=== PATIENT | female | born 1955 | race Caucasian/White ===

== ENCOUNTER → 2020-08-14 10:28 | Outpatient (CLI) | payer MEDICARE, OTHER, SELFPAY ==
--- NOTE | ~2020-08-14 | MM_ITS ---
EXAMINATION: MM screening rafal BI w allen HISTORY: Screening TECHNIQUE: Craniocaudal and mediolateral oblique 3-D tomosynthesis images were obtained and synthetic 2-D images were generated. CAD analysis was submitted and interpreted. COMPARISON: Comparison to multiple prior studies sequentially, with oldest reviewed study dated 11/2014. BREAST PARENCHYMAL COMPOSITION: There are scattered areas of fibroglandular density. FINDINGS: There is no evidence of suspicious mass, calcification, or architectural distortion to sugg est malignancy in either breast. There has been no suspicious interval change. IMPRESSION: 1. No mammographic evidence of malignancy. 2. Recommend routine screening mammography in one year. BI-RADS Category 1: Negative Reviewed, dictated and finalized at location A. MAKER
== END ==
PROVIDERS: Visit Provider Obstetrics & Gynecology
DX: Z12.31 Encounter for screening mammogram for malignant neoplasm of breast (principal)
CPT/HCPCS: 77063; 77067

== ENCOUNTER → 2021-09-22 09:20 | Outpatient (CLI) | payer MEDICARE, OTHER, SELFPAY ==
--- NOTE | ~2021-09-22 | MMUS_ITS ---
EXAMINATION: MM diagnostic rafal BI w allen, US breast LT complete HISTORY: Bilateral breast pain TECHNIQUE: ML, MLO and craniocaudal 3-D tomosynthesis images of both breasts were performed and [facility] were [facility]. CAD analysis was submitted and interpreted. High resolution complete bilateral breast ultrasound including all 4 quadrants and subareolar areas was performed. COMPARISON: 08/14/2020, 04/23/2019, 02/13/2018, 12/30/2016 bilateral screening mammogram examinations BREAST PARENCHYMAL COMPOSITION: There are scattered areas of fibroglandular density. FINDINGS: MAMMOGRAPHIC FINDINGS: Right breast: No suspicious mass, architectural distortion, malignant calcification, skin thickening or retraction is evident on the right. Minimal benign calcification. Left breast: Low-density approximately 1.3 cm opacity is noted in the inner mid breast at mid depth. An approximately 7 mm opacity is noted superomedial to this 1.3 cm opacity, near the central aspect o f the left breast. These are present on prior mammograms dating back to 12/30/2016 There is minimal benign calcification. ULTRASOUND: 8:00 5 cm from nipple: 0.6 x 1.3 centimeter septated cyst, with through transmission, corresponding t o the 1.3 cm mammographic opacity, benign in appearance 8:00 4 cm from nipple: 4.5 x 7.2 x 7.8 mm cyst with through transmission posterior enhancement, corre sponding to the smaller mammographic opacity. IMPRESSION: 1. Benign findings 2. Routine mammographic screening is recommended. BI-RADS Category 2: Benign finding(s). Reviewed, dictated and finalized at location A. CTIONS RECOVERY SPECIALIST IMPRESSION: 1. Benign findings 2. Routine mammographic screening is recommended. BI-RADS Category 2: Benign finding(s).
== END ==
PROVIDERS: PCP Internal Medicine; Visit Provider Advanced Practice Midwife
DX: N64.4 Mastodynia (principal); N60.02 Solitary cyst of left breast
CPT/HCPCS: 76641; 77062; 77066; G0279

== ENCOUNTER → 2022-06-04 13:17 | Outpatient (CLI) | payer MEDICARE, OTHER, SELFPAY ==
--- NOTE | ~2022-06-04 | DEXA_ITS ---
Bone Density Report Name: KELLIE BERGER Age: 66 Sex: Female Ethnicity: White Date of : 1955 Indication: osteopenia; height loss; asthma or emphysema; hysterectomy; postmenopausal Referring Provider: YANETH, JOSE Olmedo Study: Bone densitometry was performed. Exam Date: June 04, 2022 Accession number: [id number] Bone Density: Region BMD T-score Z-score Classification AP Spine (L1-L4) 0.859 -1.7 0.3 Osteopenia Femoral Neck (Left) 0.582 -2.4 -0.7 Osteopenia Total Hip (Left) 0.757 -1.5 -0.1 Osteopenia Femoral Neck (Right) 0.692 -1.4 0.3 Osteopenia Total Hip (Right) 0.778 -1.3 0.0 Osteopenia Total Hip Mean 0.768 -1.4 -0.1 Osteopenia World Health Organization criteria for BMD impression classify patients as: Normal (T-score at or above -1.0), Osteopenia (T-score between -1.0 and -2.5), or Osteoporosis (T-score at or below -2.5). 10-year Fracture Risk(1): Major Osteoporotic Fracture 12% Hip Fracture 2.3% Reported Risk Factors: [place] (), Neck BMD=0.582, BMI=38.0 (1) FRAX(R) Version 3.08. Fracture probability calculated for an untreated patient. Fracture probability may be lower if the patient has received treatment. Previous Exams: Region Exam Age BMD T-score BMD Change BMD Change Date g/cm2 vs Baseline vs Previous AP Spine(L1-L4) 06/04/2022 66 0.859 -1.7 -0.172 -0.003 10/30/2015 60 0.861 -1.7 -0.170 -0.044* 05/18/2010 54 0.905 -1.3 -0.126 -0.044* 10/10/2006 51 0.949 -0.9 -0.082 -0.082 12/20/2003 48 1.031 -0.1 Total Hip(Left) 06/04/2022 66 0.757 -1.5 -0.015 0.050 10/30/2015 60 0.707 -1.9 -0.065 -0.056* 05/18/2010 54 0.763 -1.5 -0.009 -0.099* 10/10/2006 51 0.862 -0.7 0.090 0.090 12/20/2003 48 0.772 -1.4 Total Hip(Right) 06/04/2022 66 0.778 -1.3 -0.022 -0.007 10/30/2015 60 0.785 -1.3 -0.015 -0.035* 05/18/2010 54 0.821 -1.0 0.021 -0.065* 10/10/2006 51 0.886 -0.5 0.085 0.085 12/20/2003 48 0.800 -1.2 *Denotes significance at 95% confidence level, LSC for AP Spine = 0.022 g/cm2, LSC for Total Hip = 0.027 g/cm2 Clinical Information Provided by Patient: Has used the following medications: Vitamin D Has the following medical conditions: Asthma or Emphysema, Hysterectomy Patient maximum height was 66
== END ==
PROVIDERS: PCP Internal Medicine; Visit Provider Internal Medicine
DX: Z78.0 Asymptomatic menopausal state (principal); M85.88 Other specified disorders of bone density and structure, other site; M85.852 Other specified disorders of bone density and structure, left thigh; M85.851 Other specified disorders of bone density and structure, right thigh
CPT/HCPCS: 77080

== ENCOUNTER → 2023-06-13 12:33 | Outpatient (CLI) | payer MEDICARE, OTHER, SELFPAY ==
--- NOTE | ~2023-06-13 | MM_ITS ---
EXAMINATION: MM screening rafal BI w allen HISTORY: Screening mammogram, family history of breast cancer in her sister. TECHNIQUE: Craniocaudal and mediolateral oblique 3-D tomosynthesis images were obtained and synthetic 2-D images were generated. CAD analysis was submitted and interpreted. COMPARISON: 09/22/2021, 08/14/2020, 04/23/2019 BREAST PARENCHYMAL COMPOSITION: There are scattered areas of fibroglandular density. FINDINGS: Stable left breast masses are consistent with benign findings. No suspicious mass, calcific ation, or architectural distortion are identified in either breast to suggest malignancy. There has b een no suspicious interval change. IMPRESSION: 1. No mammographic evidence of malignancy. 2. Recommend routine screening mammography in one year. BI-RADS Category 2: Benign finding(s). Reviewed, dictated and finalized at location A. P POLISHER
== END ==
PROVIDERS: PCP Obstetrics & Gynecology; Visit Provider Obstetrics & Gynecology
DX: Z12.31 Encounter for screening mammogram for malignant neoplasm of breast (principal)
CPT/HCPCS: 77063; 77067

== ENCOUNTER 2023-12-28 16:00 | Outpatient (CLI) | payer MEDICARE, OTHER, SELFPAY ==
[2023-12-28 17:31] LABS: Hematocrit 41.4 % (37.0-47.0); Hemoglobin 13.2 g/dL (12.0-15.0); Mean Corpuscular HGB Conc 31.9 g/dl (32-36); Mean Corpuscular Hemoglobin 30.3 pg (26-34); Mean Platelet Volume 11.2 fl (7.4-10.4); Platelet Count Result 196 k/mm3 (150-375); Red Blood Count 4.36 M/mm3 (4.2-5.4); Red Cell Distribution Width 12.4 % (11.5-14.5); White Blood Count 4.6 K/mm3 (4.5-10.0)
[2023-12-28 18:32] LABS: Erythrocyte Sedimentation Rate 32 mm/hr (0-20)
[2023-12-28 18:57] LABS: Alanine Aminotransferase 26 U/L (6-35); Albumin Level 4.4 g/dL (3.5-5.1); Alkaline Phosphatase 83 U/L (38-126); Anion Gap 10 mmol/L (4-12); Aspartate Amino Transferase 34 U/L (14-36); Bilirubin,Total 0.4 mg/dL (0.2-1.3); Blood Urea Nitrogen 22 mg/dL (7-17); CRP < 0.5 mg/dL (<1.0); Calcium 9.5 mg/dL (8.4-10.2); Carbon Dioxide 24 mmol/L (22-30); Chloride 109 mmol/L (98-107); Estimated Glomerular Filt Rate 49; Glucose 95 mg/dL (65-110); Potassium 4.1 mmol/L (3.4-5.0); Sodium 143 mmol/L (137-145)
[2023-12-28 20:11] LABS: Free T4 Free Thyroxine Reflex 0.95 ng/dL (0.78-2.19)
[2023-12-28 21:44] LABS: Total Triiodothyronine (T3) 1.42 NG/ML (0.97-1.69)
[2024-01-02 18:08] LABS: Immunoglobulin A 305 mg/dL (70-320); TTG IGA AB <1.0 U/mL
== END 2023-12-28 16:01 | disposition home or self-care (01) ==
LOC: ANHLAB 16:07
PROVIDERS: PCP Internal Medicine; Visit Provider Nurse Practitioner
DX: K58.0 Irritable bowel syndrome with diarrhea (principal)
CPT/HCPCS: 36415; 80053; 82784; 84439; 84443; 84480; 85027; 85652; 86140; 86364

== ENCOUNTER 2024-01-05 15:07 | Outpatient (CLI) | payer MEDICARE, OTHER, SELFPAY ==
[2024-01-05 17:07] LABS: Toxigenic C. Diff NEGATIVE (NEGATIVE)
[2024-01-09 15:44] LABS: Calprotectin, Stool 67 mcg/g
[2024-01-11 22:03] LABS: Pancreatic Elastase, Stool >500 mcg/g
== END 2024-01-05 15:08 | disposition home or self-care (01) ==
LOC: ANHLAB 15:09
PROVIDERS: PCP Internal Medicine; Visit Provider Nurse Practitioner
DX: K58.0 Irritable bowel syndrome with diarrhea (principal)
CPT/HCPCS: 82653; 83993; 87045; 87427; 87449; 87493

== ENCOUNTER 2024-11-26 08:58 | Outpatient (CLI) | payer MEDICARE, OTHER, SELFPAY ==
--- NOTE | ~2024-11-26 | MMUS_ITS ---
EXAMINATION: MM diagnostic rafal BI w allen, US breast LT limited HISTORY: 69-year-old woman with a significant family history of breast cancer and multiple prior bila teral breast biopsies (excisional and percutaneous) presents with a palpable left-sided abnormality o f unknown duration TECHNIQUE: Additional 3-D tomosynthesis images of the bilateral breasts were performed and synthetic 2-D images were generated. CAD analysis was submitted and interpreted. High resolution limited left breast ultrasound was performed. COMPARISON: 06/13/2023 and dating back to 04/23/2019 BREAST PARENCHYMAL COMPOSITION: Not Dense. There are scattered areas of fibroglandular density. FINDINGS: MAMMOGRAPHIC FINDINGS: Punctate calcifications are detected bilaterally, stable and benign in appearance. No architectural distortion or suspicious microcalcifications are present. The area of palpable concern is located within the slightly upper inner left breast between 2 and 5 c m from the nipple. An additional asymmetry within the slightly upper inner left breast is also noted (not corresponding to the area of palpable concern), for which focused ultrasound will be performed This area is stable mammographically dating back to 2018. ULTRASOUND: At the 9:00 position of the left breast approximately 7 cm from the nipple is a 14 x 6 x 18 mm well-c ircumscribed avascular anechoic focus with increased through transmission, consistent with a simple c yst for which no further follow-up is needed. At the 7:00 position of the left breast approximately 8 cm from the nipple is a 10.5 x 10.4 x 12 mm w ell-circumscribed, avascular, anechoic focus with increased through transmission, consistent with a s imple cyst for which no further follow-up is needed. At the 6:00 position of the left breast approximately 10 cm from the nipple is a well-circumscribed, anechoic, avascular focus measuring 12 x 6 x 12 mm, with increased through transmission, consistent w ith a simple cyst for which no further follow-up is needed. Sonographic evaluation of the remainder of the left breast demonstrates benign fibroglandular element s without a cystic or solid lesion of concern. IMPRESSION: No mammographic/tomographic or sonographic evidence to suggest the presence of malignancy Simple cysts, corresponding to the area of palpable concern, as detailed above. Resumption of yearly mammography is recommended. BI-RADS Category 2: Benign finding(s). Reviewed, dictated and finalized at location A. IMPRESSION: No mammographic/tomographic or sonographic evidence to suggest the presence of malignancy Simple cysts, corresponding to the area of palpable concern, as detailed above. Resumption of yearly mammography is recommended. BI-RADS Category 2: Benign finding(s).
== END 2024-11-26 08:59 | disposition home or self-care (01) ==
LOC: MICIMG 09:00
PROVIDERS: PCP Internal Medicine; Visit Provider Obstetrics & Gynecology
DX: N63.0 Unspecified lump in unspecified breast (principal); Z80.3 Family history of malignant neoplasm of breast; R92.8 Other abnormal and inconclusive findings on diagnostic imaging of breast
CPT/HCPCS: 76642; 77062; 77066; G0279

== ENCOUNTER 2024-12-06 14:50 | Outpatient (CLI) | payer MEDICARE, OTHER, SELFPAY ==
--- OUTSIDE RECORDS SUMMARY | 2024-12-06 14:55 | XMS_ITS | Encounter Summary ---
Author Organization [facility] Healthcare Address [address] [place] [address] Care Team Providers Care Picture Framer Name Role Phone Unavailable Primary Care Provider Unavailabl e Reason for Visit * Diagnostic Imaging (Routine) - Closed Specialty Diagnoses / Procedures Referred By Contbear t Referred To Contact Procedures Breast Imaging Screening Outside Reference Nila Haddad MD PhD [address] [facility] [id number] [place] [address] Phone: tel: fax: Referral ID Status Reason Start Date Expiration Date Visits Re quested Visits Authorized [id number] Closed 11/30/2021 12/30/2022 1 1 Encounter Details Date Type Department Care Team (Late st Contact Info) Description 02/13/2018 Hospital Encounter [facility] [address] [place] [phone] Social History Tobacco Use Types Packs/Day Years Used Date Smoking Tobacco: Former Cigarettes Q uit: 1979 Smokeless Tobacco: Never AUDIT-C Answer Date Recorded Q1: How often do you have a drink containing alc ohol? Never 03/30/2024 Average Number of Drinks Not on file 024 Frequency of Binge Drinking Not on file 03/03 Personal Safety Answer Date Recorded Have you ever been in or are you currently in a harmful physical or emotional relationship or is someone making you feel afraid or unsafe? Denies 03/30/2024 Comments Unknown Sex and Gender Information Value Date Recorded Sex Assigned at Not on file Legal Sex Female 2:16 AM [employer] Gender Identity Not on file Sexual Orientation Not on file documented as of this encounter Functional Status documented as of this encounter Plan of Treatment Not on file documented as of this encounter Procedures Procedure Name Priority Date/Time Associated Diagnosis Comments BREAST IMAGING MG SCREENING OUTSIDE REFERENCE Routine 02/13/2018 12:00 AM CDT documented in this encounter Results * Breast Imaging Screening Outside Reference (02/13/2018 12:00 AM CDT) Impressions [facility] - 11/30/2021 2:53 PM CDT These images are for Reference purposes only and have not been reviewed by [facility]iology. There will be no report generated by a [facility] Radiologist. Narrative [facility] - 11/30/2021 2:53 PM CDT EXAMINATION: Images For Reference Purposes Only us Nila Haddad MD PhD IMG MAMMO PROCEDURES Final Result [facility] documented in this encounter Visit Diagnoses Not on filedocumented in this encounter
--- OUTSIDE RECORDS SUMMARY | 2024-12-06 14:55 | XMS_ITS | Encounter Summary ---
Author Organization [facility] Healthcare Address [address] [place] [address] Care Team Providers Care English Adjunct Faculty Name Role Phone Unavailable Primary Care Provider Unavailabl e Reason for Visit * Diagnostic Imaging (Routine) - Closed Specialty Diagnoses / Procedures Referred By Contbear t Referred To Contact Procedures Breast Imaging Screening Outside Reference Nila Haddad MD PhD [address] [facility] [id number] [place] [address] Phone: tel: fax: Referral ID Status Reason Start Date Expiration Date Visits Re quested Visits Authorized [id number] Closed 11/30/2021 12/30/2022 1 1 Encounter Details Date Type Department Care Team (Late st Contact Info) Description 08/14/2020 Hospital Encounter [facility]iology [facility] [address] [place] [phone] Social History Tobacco Use Types Packs/Day [...] on file 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 Gender Identity Not on file Sexual Orientation Not on file documented as of this encounter Functional Status documented as of this encounter Plan of Treatment Not on file documented as of this encounter Procedures Procedure Name Priority Date/Time Associated Diagnosis Comments BREAST IMAGING MG SCREENING OUTSIDE REFERENCE Routine 08/14/2020 12:00 AM LOCK AND DAM REPAIRER documented in this encounter Results * Breast Imaging Screening Outside Reference (08/14/2020 12:00 AM LOCK AND DAM REPAIRER) Impressions [facility] - 11/30/2021 2:54 PM CDT These images are for Reference purposes only and have not been reviewed by [facility] Radiology. There will be no report generated by a [facility] Radiologist. Narrative [facility] - 11/30/2021 2:54 PM CDT EXAMINATION: Images For Reference Purposes Only us Nila Haddad MD PhD IMG MAMMO PROCEDURES Final Result [facility] documented in this encounter Visit Diagnoses Not on filedocumented in this encounter
--- OUTSIDE RECORDS SUMMARY | 2024-12-06 14:55 | XMS_ITS | Encounter Summary ---
Author Organization [facility] Healthcare Address [address] [place] [address] Care Team Providers Care Crisis Intervention Specialist Name Role Phone Unavailable Primary Care Provider Unavailabl e Reason for Visit * Diagnostic Imaging (Routine) - Closed Specialty Diagnoses / Procedures Referred By Warren t Referred To Contact Procedures Breast Imaging Screening Outside Reference Nila Haddad MD PhD [address] 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 Gender Identity Not on file Sexual Orientation Not on file documented as of this encounter Functional Status documented as of this encounter Plan of Treatment Not on file documented as of this encounter Procedures Procedure Name Priority Date/Time Associated Diagnosis Comments BREAST IMAGING MG SCREENING OUTSIDE REFERENCE Routine 12/30/2016 12:00 AM CDT documented in this encounter Results * Breast Imaging Screening Outside Reference (12/30/2016 12:00 AM CDT) Impressions [facility] - 11/30/2021 2:53 PM CDT These images are for Reference purposes only and have not been reviewed by [facility] Radiology. There will be no report generated by a [facility] Radiologist. Narrative [facility] - 11/30/2021 2:53 PM CDT EXAMINATION: Images For Reference Purposes Only us Nila Haddad MD PhD IMG MAMMO PROCEDURES Final Result [facility] documented in this encounter Visit Diagnoses Not on filedocumented in this encounter
--- OUTSIDE RECORDS SUMMARY | 2024-12-06 14:55 | XMS_ITS | Encounter Summary ---
Author Organization [facility] Healthcare Address [address] [place] [address] Care Team Providers Care Card Runner Name Role Phone Unavailable Primary Care Provider Unavailabl e Reason for Visit * Diagnostic Imaging (Routine) - Closed Specialty Diagnoses / Procedures Referred By Contbear t Referred To Contact Procedures Breast Imaging Screening Outside Reference Nila Haddad MD PhD [address] [facility] [phone] [place] [address] Phone: tel: fax: Referral ID Status Reason Start Date Expiration Date Visits Re quested Visits Authorized [id number] Closed 11/30/2021 12/30/2022 1 1 Encounter Details Date Type Department Care Team (Late st Contact Info) Description 04/23/2019 Hospital Encounter [facility] [address] [place] [phone] Social History Tobacco Use Types Packs/Day Years [...] on file 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 Gender Identity Not on file Sexual Orientation Not on file documented as of this encounter Functional Status documented as of this encounter Plan of Treatment Not on file documented as of this encounter Procedures Procedure Name Priority Date/Time Associated Diagnosis Comments BREAST IMAGING MG SCREENING OUTSIDE REFERENCE Routine 04/23/2019 12:00 AM CDT documented in this encounter Results * Breast Imaging Screening Outside Reference (04/23/2019 12:00 AM CDT) Impressions [facility] - 11/30/2021 2:54 PM CDT These images are for Reference purposes only and have not been reviewed by [facility] Radiology. There will be no report generated by a [facility] Radiologist. Narrative [facility] - 11/30/2021 2:54 PM CDT EXAMINATION: Images For Reference Purposes Only us Nila Haddad MD PhD IMG MAMMO PROCEDURES Final Result [facility] documented in this encounter Visit Diagnoses Not on filedocumented in this encounter
--- OUTSIDE RECORDS SUMMARY | 2024-12-06 14:55 | XMS_ITS | Clinical Summary ---
Author Organization [facility] Address [address] [place] [address] Care Team Providers Care Sulky Driver Name Role Phone Joseph Kruger MD Primary Care Provider Jones Dalton MD Unavailable [phone] Allergies Active Allergy Reactions Criticality Noted Date Comments Codeine Nausea & Vomiting Low 03/30/2024 Iodine Hives,Dizziness,Nausea only,Sweating Medium 12/03/2021 Medications montelukast (SINGULAIR) 10 mg tablet Take 1 tablet (10 mg total) by mouth nightly 10/14/2021 Active propranolol LA (INDERAL LA) 60 mg 24 hr capsule Take by mouth daily 10/21/2021 Active topiramate (TOPAMAX) 50 mg tablet Take 1 tablet (50 mg total) by mouth 2 (two) times a day 11/30/2021 Active traZODone (DESYREL) 100 mg tablet Take 1 tablet (100 mg total) by mouth nightly at bedtime 11/26/2021 Active predniSONE (DELTASONE) 10 mg tabletIndicatio ns:hypersensiti vity drug reaction Take 40 mg (2-20 mg tables) TID on 03/29/24. Take 40 mg (2-20 mg tablets) on 03/30/24 8 tablet 02/22/2024 Active cholecalciferol (Vitamin D3) 1,000 unit capsule Take 1 capsule (1,000 Units total) by mouth daily 1000units=25 mcg Active Eliquis 5 mg tablet Take 1 tablet (5 mg total) by mouth 2 (two) times a day Active escitalopram (LEXAPRO) 20 mg tablet Take 1 tablet (20 mg total) by mouth daily Active amitriptyline (ELAVIL) 25 mg tablet Take 1 tablet (25 mg total) by mouth nightly 12/27/2023 Active amLODIPine (NORVASC) 5 mg tablet Take 1 tablet (5 mg total) by mouth daily 12/27/2023 Active Bacillus coagulans (PROBIOTIC, B. 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 Dalton -Remains compliant on apixaban -No medication changes were made today -EKG today demonstrates sinus rhythm -Denies any reoccurrence of her atrial arrhythmia -Follow up in 3 months for 12 lead EKG and clinic visit Assessment & Plan (02/10/2024 1:13 PM CDT): The patient has symptomatic paroxysmal atrial fibrillation, of overall high burden (estimated at 75%, by previous event recorder). After considering possible options for manage, the patient is not in favor of antiarrhythmic pharmacologic therapy. As an alternative, we discussed catheter ablation. We discussed the rationale for atrial fibrillation ablation, including the steps involved in ablation. I detailed the risks of the procedure, including vascular injury/hematoma, myocardial injury/perforation, stroke, myocardial infarction, pulmonary vein stenosis, thermal esophageal injury, phrenic nerve injury and . I estimated a 70-80% chance of freedom from long-term atrial arrhythmia, and the patient understands that occasionally a second procedure is necessary. The patient has a [id number] score of 2. I have therefore recommended continued anticoagulation thromboprophylaxis. My office will make the appropriate arrangements. From: August, Marty WHITLEY, Alanna JS, Luis H, Rakan MORENA, Jeny JE, Graciela RUBÉN, Jaquelin PT, Mamadou DURON, ME, Wong KT, Riya RL, Sid WG, Nya PJ, Tiffany CM, Jenn CW. 2014 AHA/ACC/HRS guideline for the management of patients with atrial fibrillation: a report of the [place] [employer]/[place] [employer] Association Task Force on Practice Guidelines and the Heart Rhythm Society. J Am Stephanie Cardiol 2014. 6.3. AF Catheter Ablation to Maintain Sinus Rhythm: Recommendations Class IIA. In patients with recurrent symptomatic paroxysmal AF, catheter ablation is a reasonable initial rhythm control strategy prior to therapeutic trials of antiarrhythmic drug therapy, after weighing risks and outcomes of drug and ablation therapy ([phone]). (Level of Evidence: B) Encounters Date Type Department Care Team Description 11/20/2024 Orders Only [facility] [address] [place] [phone] Tim Pollock DO 11/12/2024 1:30 PM CDT Office Visit [facility] [address] [place] [phone] Judy Mukherjee, AMELIA Cardiac arrhythmia, unspecified cardiac arrhythmia type (Primary Dx) 11/01/2024 Orders Only [facility] [address] [place] [address] [address] [facility] [place] [phone] Mike Mclaughlin MD from Last 3 Months Surgical History Surgery Date Site/Laterality Comments BREAST BIOPSY Left Left x2, right x1 MANDIBLE SURGERY ARM SURGERY Left REPLACEMENT TOTAL KNEE Bilateral Medical History Medical History Date Comments HTN (hypertension) Generalized headaches Depression Overweight Arthritis Breathing difficulty Arrhythmia Family History Medical History Relation Name Comments Breast cancer Father's Sister Colon cancer Mother's Brother 1 Colon cancer Mother's Brother 2 Colon cancer Mother's Sister Breast cancer Paternal Grandmother Breast cancer Sister 1 Leukemia Sister 1 Breast cancer Sister 2 Colon cancer Sister 2 Relation Name Status Comments Father's Sister Mother's Brother 1 Mother's Brother 2 Mother's Sister Paternal Grandmother Sister 1 Sister 2 Social History Tobacco Use Types Packs/Day Years [...] on file Legal 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 Gender Identity Not on file Sexual Orientation Not on file Obstetrics History Last Filed Vital Signs Vital Sign Reading Time Taken Comments Blood Pressure 152/84 11/12/2024 1:25 PM CDT Pulse 69 11/12/2024 1:25 PM CDT Temperature 36.6 C (97.8 F) 03/30/2024 9:33 AM CDT Respiratory Rate 18 03/30/2024 2:00 PM CDT Oxygen Saturation 96% 03/30/2024 2:00 PM CDT Inhaled Oxygen Concentration - - Weight 102.1 kg (225 lb) 11/12/2024 1:25 PM CDT Height 165.1 cm (5' 5 ) 11/12/2024 1:25 PM CDT Body Mass Index 37.44 11/12/2024 1:25 PM CDT Plan of Treatment Health Maintenance Due Date Last Done Comments Breast Cancer Screening-Mammogram 1954 Colon Cancer Screening-Colonoscopy 1955 Depression Screening 1955 Hepatitis C Screening 1955 Osteoporosis Screening-Bone Density Scan 1954 Hepatitis B Screening 1972 Zoster Vaccine (1 of 2) 2004 05/14/2020 Well Visit 65+ 2019 Covid-19 Vaccine (3 - 2023-2 5 season) 2024 11/25/2020, 10/28/2020 DTaP/Tdap/Td Vaccine (2 - Td or Tdap) 05/03/2024 05/03/2014 Fall Risk Assessment 03/30/2025 03/30/2024 Influenza Vaccine (Season Ended) 2025 09/14/2023, 05/20/2020, 06/27/2019, Additional history exists Pneumococcal vaccine 65+ Completed 021, 06/27/2019, 07/05/2012, Additional history exists Medical Devices Implanted Type Area Pencils Washer Device Identifier Shelf Expiration Date Model / Serial / Lot [employer] Device Vascular Closure Femoral Artery Bioabsorbable Dual Method Vascade 6-7fr Collagen [id number] - [id number] - [id number] Implanted:Qty: 1 on 03/30/2024 by Jones Dalton MD at [facility] Collagen [employer] 11/08/2025 [id number] 5U / [id number] / [id number] [employer] Vascade Mvp 6-12fr Venous Closure [id number] - [id number] - [id number] Implanted:Qty: 1 on 03/30/2024 by Jones Dalton MD at [facility] Collagen [employer] 11/23/2025 [id number] [id number] / [id number] / [id number] [employer] Vascade Mvp 6-12fr Venous Closure [id number] - [id number] - [id number] Implanted:Qty: 1 on 03/30/2024 by Jones Dalton MD at [facility] Collagen [employer] 11/23/2025 800-612C-1 [id number] / [id number] / [id number] [employer] Vascade Mvp 6-12fr Venous Closure [id number] - [id number] - [id number] Implanted:Qty: 1 on 03/30/2024 by Jones Dalton MD at [facility] Collagen [employer] 11/23/2025 800-612C-1 [id number] / [id number] / [id number] Procedures Procedure Name Priority Date/Time Associated Diagnosis Comments CARDIOLOGY DOCUMENT SCAN Routine 11/20/2024 9:26 AM CDT CARDIOLOGY DOCUMENT SCAN Routine 11/20/2024 9:19 AM CDT ECG 12-LEAD Routine 11/12/2024 1:26 PM CDT Cardiac arrhythmia, unspecified cardiac arrhythmia type CARDIOLOGY DOCUMENT SCAN 11/01/2024 3:18 PM CDT CARDIOLOGY DOCUMENT SCAN 11/01/2024 12:48 PM CDT from Last 3 Months Results * Cardiology Document Scan (11/20/2024 9:26 AM CDT) Anatomical Region Laterality Modality Other us Tim Pollock DO [facility] PRO CEDURES Final Result * Cardiology Document Scan (11/20/2024 9:19 AM CDT) Anatomical Region Laterality Modality Other us Tim Pollock DO [facility] PRO CEDURES Final Result * ECG 12 lead (11/12/2024 1:26 PM CDT) Judy Mukherjee NP ECG ORDERABLES Final Resu lt * Cardiology Document Scan (11/01/2024 3:18 PM CDT) Anatomical Region Laterality Modality Other Mike Mclaughlin MD [facility] PROCEDURE S Final Result * Cardiology Document Scan (11/01/2024 12:48 PM CDT) Anatomical Region Laterality Modality Other Mike Mclaughlin MD [facility] PROCEDURE S Final Result from Last 3 Months Insurance MEDICARE [employer] MEDICARE [employer] Care Teams Sulky Driver Relationship Specialty Start Date End Date Joseph Kruger MD PCP - General Internal Medicine 10/16/21 Jones Dalton MD [id number] [address] Consulting Physician Electrophysiology 06/26/24
--- OUTSIDE RECORDS SUMMARY | 2024-12-06 14:55 | XMS_ITS | Encounter Summary ---
Author Organization [facility] Address [address] [place] [address] Care Team Providers Care Shake Maker Name Role Phone Unavailable Primary Care Provider Unavailabl e Reason for Visit * Diagnostic Imaging (Routine) - Closed Specialty Diagnoses / Procedures Referred By Contbear t Referred To Contact Procedures Breast Imaging Screening Outside Reference Nila Haddad MD PhD [address] [facility] [id number] [place] [address] Phone: tel: fax: Referral ID Status Reason Start Date Expiration Date Visits Re quested Visits Authorized [id number] Closed 11/30/2021 12/30/2022 1 1 Encounter Details Date Type Department Care Team (Late st Contact Info) Description 10/03/2014 Hospital Encounter [facility] [address] [place] [address] [phone] Social History Tobacco Use Types Packs/Day Years [...] on file 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 Gender Identity Not on file Sexual Orientation Not on file documented as of this encounter Functional Status documented as of this encounter Plan of Treatment Not on file documented as of this encounter Procedures Procedure Name Priority Date/Time Associated Diagnosis Comments BREAST IMAGING MG SCREENING OUTSIDE REFERENCE Routine 10/03/2014 12:00 AM SCHOOL CROSSING GUARD SUPERVISOR documented in this encounter Results * Breast Imaging Screening Outside Reference (10/03/2014 12:00 AM SCHOOL CROSSING GUARD SUPERVISOR) Impressions [facility] - 11/30/2021 2:53 PM CDT These images are for Reference purposes only and have not been reviewed by [facility]. There will be no report generated by a [facility] Radiologist. Narrative [facility] - 11/30/2021 2:53 PM CDT EXAMINATION: Images For Reference Purposes Only us Nila Haddad MD PhD IMG MAMMO PROCEDURES Final Result [facility] documented in this encounter Visit Diagnoses Not on filedocumented in this encounter
--- OUTSIDE RECORDS SUMMARY | 2024-12-06 14:55 | XMS_ITS | CONTINUITY OF CARE DOCUMENT ---
Author Name iker dungkajal Address Unknown Organization [facility] Address [address] [address] [place] [address] Phone [phone] Care Team Providers Care Honeycomb Decapper Name Role Phone Tim Pollock DO Unavailable Joseph Kruger MD Unavailable [phone] Joseph Kruger MD Unavailable PROBLEMS Condition Status Date Provider Notes CHEST PAIN-05/12 NUC EF 62 completed - P radpawel Pollcok DO SHORTNESS OF BREATH-05/12 ECHO EF 60 completed - Tim lechuga DO DEPRESSION completed - Tim Pollock DO ASTHMA completed - Tim Pollock DO MIGRAINE completed - Tim Pollock DO GASTRIC ULCER completed - Tim Pollock DO Cardiology examination completed 7 - Tim Pollock DO HTN essential active Tim Pollock DO Atrial fib ? persistent active Stephanie Pollock DO Sleep apnea has sx will r/o completed 2023 - Tim Pollock DO Dyspnea on exertion active Tim Pollock DO CHF - diastolic completed - Tim Harry Phill PELAEZ Chest pain-type to be determined active Tim lechuga DO Leg pain, left active Tim Harry Phill DO ENCOUNTERS Date Type Provider Location Encounter Diag nosis - In-person encounter Office Visit Tim Harry Phill PELAEZ [facility] Cardiology examinationCHF - diastolicChest pain-type to be determinedLeg pain, left - In-person encounter Office Visit Tim Harrycrissy Pollock DO [facility] - In-person encounter Office Visit Tim Pollock DO [facility] Sleep apnea has sx will r/o - In-person encounter Office Visit Tim Pollock DO [facility] CHEST PAIN-05/12 NUC EF 62SHORTNESS OF BREATH-05/12 ECHO EF 60DEPRESSIONASTHMAMIGRAI NEGASTRIC ULCERHTN essentialAtrial fib ? persistentDyspnea on exertion - In-person encounter Office Visit Renny Hernández MD [place] [facility] VITAL SIGNS Date Observation Value Provider Body Mass Index (Ratio) 36.87 kg/m2 Praheidi armas Harry Mansfieldra PELAEZ blood pressure, diastolic 89 mm[Hg] Li nkLogic blood pressure, systolic 157 mm[Hg] Ilana kLogic blood pressure, diastolic 89 mm[Hg] Ky aliyah Erik blood pressure, systolic 157 mm[Hg] Kyl ia Erik pulse rate 66 /min Kylia Erik oxygen saturation, oximetry 96 % Kylia Erik respiratory rate E&M 12 /min Asad wills weight E&M 225 [lb_av] Kylia Erik blood pressure, cuff size regular Ky aliyah Erik height E&M 65.5 [in_i] Asad Erik blood pressure, diastolic 84 mm[Hg] Brandie nkLogic blood pressure, systolic 128 mm[Hg] Ilana kLog Body Mass Index (Ratio) 36.05 kg/m2 Aaron Pruett [employer]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 pulse rate 81 /min Karina Murray blood pressure, cuff size regular Ta bitpam Murray blood pressure, diastolic 84 mm[Hg] Ta bitha Murray blood pressure, systolic 128 mm[Hg] Tab itha Murray oxygen saturation, oximetry 100 % Karina Murray weight E&M 220 [lb_av] Karina Murray respiratory rate E&M 12 /min Karina Murray height E&M 65.5 [in_i] Karina Murray Body Mass Index (Ratio) 35.23 kg/m2 [facility] size regular Ke rri Gruenenfelder blood pressure, diastolic 80 mm[Hg] Ke rri Gruenenfelder blood pressure, systolic 142 mm[Hg] Ker ri Gruenenfelder oxygen saturation, oximetry 98 % Nguyen Gruenenfelder respiratory rate E&M 12 /min Nguyen G ruenenfelder pulse rate 65 /min Nguyen Gruenenfe lder weight E&M 215 [lb_av] Nguyen Gruenenfe lder height E&M 65.5 [in_i] Nguyen Gruenenfe ld Body Mass Index (Ratio) 35.39 kg/m2 Prad ee [facility] blood pressure, diastolic 94 mm[Hg] Brandie nkLogic blood pressure, systolic 142 mm[Hg] Ilana kLogic weight E&M 216 [lb_av] Karina Murray blood pressure, cuff size regular Thad Murray blood pressure, diastolic 94 mm[Hg] Thad Murray blood pressure, systolic 142 mm[Hg] Cesar Murray respiratory rate E&M 12 /min Karina Murray oxygen saturation, oximetry 98 % Karina Murray pulse rate 97 /min Karina Murray height E&M 65.5 [in_i] Karina Trevor blood pressure, diastolic 75 mm[Hg] Danilo Andino RN blood pressure, systolic 126 mm[Hg] Shelton Andino RN pulse rate 89 /min Shelton Andino RN oxygen saturation, oximetry 98 % Shelton Andino RN respiratory rate E&M 16 /min Shelton wilson RN Body Mass Index (Ratio) 32.07 kg/m2 Shelton Andino RN weight E&M 195 [lb_av] Shelton Andino RN height E&M 65.5 [in_i] Shelton Andino RN ALLERGIES Allergy Name Onset Date Reaction Criticality Status ZIRTHROMAX High Criticality active IODINE WHIRLPOOL CONCENTRATE High Cr iticality active RESULTS Date Observation Value Provider Reference Range Interpretation Location platelet count 259 10*3/mm3 Noman Herron hematocrit, blood 43.5 % Noman Herron alanine aminotransferase (SGPT), serum 23 1/L Noman Herron aspartate aminotransferase (SGOT), serum 40 1/L Noman Herron creatinine, serum 0.99 mg/dL Noman Herron potassium, serum 3.7 mmol/L Noman Herron sodium, serum 145 mmol/L Noman Herron HISTORY OF MEDICATION USE Medication Status Instructions Dates Provider Indications Com ments aspirin 325 mg capsule active once a day Asad Valencia albuterol sulfate 90 mcg/actuation HFA aerosol inhaler active INHALE 2 PUFFS BY MOUTH EVERY 6 HOURS NEEDED FOR SHORTNESS OF BREATH Nguyen Llanos amitriptyline 25 mg tablet active take 1 pill a day Nguyen Llanos escitalopram oxalate 20 mg tablet active TAKE 1 TABLET BY MOUTH EVERY DAY Nguyen Llanos meloxicam 7.5 mg tablet active as needed Nguyen Llanos Eliquis 5 mg tablet active Take 1 tablet by mouth twice a day Tim Pollock DO Vitamin D3 25 mcg (1,000 unit) tablet completed - Nguyen Llanos tramadol tablet 50 mg active Take one tablet PO once daily PRN Karina Murray trazodone 100 mg tablet active Take 1 tablet by mouth every night Tim Pollock DO topiramate 50 mg tablet active Take 1 tablet by mouth twice a day Tim Pollock DO montelukast 10 mg tablet active take 1 pill a day Nguyen Llanos amlodipine 2.5 mg tablet active Take 1 tablet by mouth once a day Ranjana Pruett NP propranolol 60 mg capsule,extended release 24 hr active Take 1 capsule by mouth once a day Tim Pollock DO ASTELIN completed 30 mg BID - Shelton Andino RN PRINIVIL 10 MG ORAL TABLET completed 1 daily - Shelton Andino RN ALBUTEROL 90 MCG/ACT AERS completed 2 puff prn - Shelton Andino RN Singulair 10 mg tablet completed Take 1 tablet by mouth once a day - Nguyen Llanos ADVAIR DISKUS 500-50 MCG/DOSE INHALATION AEROSOL POWDER BREATH ACTIVATED completed BID - Shelton Andino RN SOCIAL HISTORY Date Observation Value Provider smoking status former smoker Shelton [place] passive cigarette smoke exposure no Shelton Andino RN social history E&M Marital Statu s: E thnicity: L jessica with family/friends Shelton Andino RN drug use no Shelton Andino RN caffeine use, averag e drinks per day no Shelton Andino RN smoking status never smoker Shelton Andino RN social history reviewed E&M reviewed Shelton Andino RN physical exercise, f requency, days per week no LinkLogic caffeine use, averag e drinks per day no LinkLog alcohol use, average drinks per day none LinkLogic number of years as a smoker 10 years or m ore LinkLogic smoking status Quit LinkLog MENTAL STATUS Date Observation Value Provider assessment of judgme nt and insight E&M Alert and oriented to time, place and person. Mood and affect are normal. Shelton Andino RN INSURANCE PROVIDERS Payer name Policy type / Coverage type [employer] red democrat ID [employer] insura [employer] [id number] [place] MEDICARE PART B Medicare [id number] ADVANCE DIRECTIVES Name Date DISCUSSED - NO DECISION MADE TREATMENT PLAN Date Name Performer Cardiology:planning dawn Tim Pollock Cardiology:She was h ospitalized last week with chest pain, non exertional, relieved with ntg. She had some associated leg and hand numbness. No recurrence of AFib on monitoring. Outpt stress testing recommended. p kieran stress test for risk stratification Timveronica Pollock Cardiology: w orsened by af s /p ablation d yspnea has improved since Tim Pollock Cardiology: f elt to be related to AF P ET/CT 01/22 no ischemia, frequent pvcs s /p afib ablation 03[facility] o n bb o ac eliquis e cho ok, ef nml, la size mildly dilated t karlie 77% burden, rate controlled l abs ok but probnp 3450 n o jael n sr today P ET/CT 01/22 no ischemia, frequent pvcs s uccesful afib ablation 03/24 with giovanna This visit has been a part of the consistent, comprehensive, and ongoing management of the chronic medical condition(s) listed above for patient. Tim Pollock Cardiology: Home bp log reviewed, 120s/70s consistently. H er updated medication list for this problem includes: Amlodipine 2.5 Mg Tablet (Amlodipine) ..... Take 1 tablet by mouth once a day Propranolol 60 Mg Capsule,extended Release 24 Hr (Propranolol) ..... Take 1 capsule by mouth once a day BP today: 157/89 P rior BP: 128/84 (04/12/2024) Labs Reviewed: C reat: 0.99 (04/02/2012) Tim Pollock Cardiology:RPM revie wed. 100s/60. Cut amlodpine to 2.5mg D iscussion of benefits for remote patient monitoring took place. Patient gives consent for remote monitoring of physiologic parameters including, but not limited to, weight, blood pressure, pulse oximetry, respiratory flow rate. BP today: 128/84 P rior BP: 142/80 (01/03/2024) Labs Reviewed: C reat: 0.99 (04/02/2012) Her updated medication list for this problem includes: Amlodipine 5 Mg Tablet (Amlodipine) ..... Take 1 tablet by mouth once a day Propranolol 60 Mg Capsule,extended Release 24 Hr (Propranolol) ..... Take 1 capsule by mouth once a day Tim Pollock Cardiology: o n bb o ac eliquis e cho ok, ef nml, la size mildly dilated t karlie 77% burden, rate controlled l abs ok but probnp 3450 n o jael n sr today P ET/CT 01/22 no ischemia, frequent pvcs s uccesful afib ablation 03/24 with giovanna This visit has been a part of the consistent, comprehensive, and ongoing management of the chronic medical condition(s) listed above for patient. Tim Pollock Cardiology: o n bb o ac eliquis e cho ok, ef nml, la size mildly dilated t karlie 77% burden, rate controlled l abs ok but probnp 3450 n o jael n sr today P ET/CT 01/22 no ischemia, frequent pvcs s uccesful afib ablation 03/24 with giovanna Pruett NP Cardiology:RPM revie wed. 110/60s B P today: 128/84 P rior BP: 142/80 (01/03/2024) Labs Reviewed: C reat: 0.99 (04/02/2012) Her updated medication list for this problem includes: Amlodipine 5 Mg Tablet (Amlodipine) ..... Take 1 tablet by mouth once a day Propranolol 60 Mg Capsule,extended Release 24 Hr (Propranolol) ..... Take 1 capsule by mouth once a day Ranjana Artem Seble 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 Cardiology: f elt to be related to AF P ET/CT 01/22 no ischemia, frequent pvcs s /p afib ablation 03/24 r esolved [facility] 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 Cardiology: w orsened by af s /p ablation d yspnea has improved since Ranjanaalexandrea Pruett 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 Cardiology:felt to b e related to AF c heck stress test prior to initiating aad and referral to eps for consideration of ablation n eed pharm stress d/t body habitus bmi >35 so pet best option Tim Pollock DO Cardiology:worsened by af Linda Pollock DO Cardiology: H er updated medication list for this problem includes: Amlodipine 5 Mg Tablet (Amlodipine) ..... Take 1 tablet by mouth once a day Propranolol 60 Mg Capsule,extended Release 24 Hr (Propranolol) ..... Take 1 capsule by mouth once a day BP today: 142/80 P rior BP: 142/94 (12/06/2023) Labs Reviewed: C reat: 0.99 (04/02/2012) Tim Pollock DO Cardiology: o n bb o ac eliquis e cho ok, ef nml, la size mildly dilated t karlie 77% burden, rate controlled l abs ok but probnp 3450 n o jael n sr today c heck stress test prior to initiating aad and referral to eps for consideration of ablation I spent >40 minutes of direct professional time reviewing previous records, test results, patient histroy and review of systems, physical examination, formulating a plan and providing written correspondance to physicians on the care team. Medical decision making is complex due to the number of high acuity diagnoses and test review. Tim Pollock Cardiology:felt to b e related to AF c heck stress test prior to initiating aad and referral to eps for consideration of ablation Tim Pollock Cardiology:rate cont rolled o n bb s tart oac eliquis e kelsi ziegler l abs r /o sleep apnea m ay need cardioversion next visit Tim Pollock Cardiology:Discussio n of benefits for remote patient monitoring took place. Patient gives consent for remote monitoring of physiologic parameters including, but not limited to, weight, blood pressure, pulse oximetry, respiratory flow rate. Her updated medication list for this problem includes: Amlodipine 5 Mg Tablet (Amlodipine) Propranolol 60 Mg Capsule,extended Release 24 Hr (Propranolol) Aspirin 81 Mg Oral Tablet (Aspirin) ..... One tab. daily BP today: 142/94 P rior BP: 126/75 (05/25/2012) Labs Reviewed: C reat: 0.99 (04/02/2012) Tim Mcdonald Phill Cardiology:labs e kelsi ziegler m ay likely need cv. Timveronica Mcdonald Phill Cardiology:check ihs Tim woodward [facility] : T he following medications were removed from the medication list: Prinivil 10 Mg Tabs (Lisinopril) ..... 1 daily Her updated medication list for this problem includes: Aspirin 81 Mg Tabs (Aspirin) ..... One tab. daily Orders: C omplete Echo (CPT-89919) S tress Test - Adenosine (89694) Renny Hernández MD :we will rx asa and ntg tabs and an adenosine myoview as she has intermediate prob. s he was admitted and ruled out and has no ekg changes today T he following medications were removed from the medication list: Prinivil 10 Mg Tabs (Lisinopril) ..... 1 daily Her updated medication list for this problem includes: Nitrostat 0.4 Mg Subl (Nitroglycerin) ..... One tab. under tongue as needed. may repeat twice in 10 minutes. Aspirin 81 Mg Tabs (Aspirin) ..... One tab. daily Orders: E KG ([id number]) C omplete Echo (CPT-25911) S tress Test - Adenosine (67856) Renny Hernández MD Date Name Arterial Duplex Bi-L ower EX myocardial blood luís w (PET) Stress Cardiac PET-C T Stress Cardiac PET-C T RPM (remote patient monitoring) TSH, free T4, total T3 CBC (INCLUDES DIFF/P LT) HEMOGLOBIN A1c LIPID PANEL PROBNP, N TERMINAL BASIC METABOLIC PANE L W/EGFR Monitor - Telemetry (Mobile Cardiac) Sleep Study Home Complete Echo Stress Test - Adenos ine Complete Echo HISTORY OF PROCEDURES Procedure Date Procedure Name Provider Procedure Notes S tatus Complex e/m visit ad d on Tim Harry Phill DO [10/23/2024 - ajit] MEDICARE completed EKG Tim Harry Mansfieldra DO [10/23/2024 - patmertson] MEDICARE completed Complex e/m visit ad d on Tim Harry Phill DO completed EKG Tim Harry Mansfieldra DO completed Complex e/m visit ad d on Tim Harry Phill DO completed EKG Tim Harry Phill DO completed EKG Tim Pollock DO completed EKG Renny Hernández MD completed
--- OUTSIDE RECORDS SUMMARY | 2024-12-06 14:55 | XMS_ITS | Referral Summary ---
Author Organization [facility] Address [address] [place] [address] Care Team Providers Care Asphalt Paver Name Role Phone Joseph Kruger MD Primary Care Provider Jones Dalton MD Unavailable Encounters Date Type Department Care Team Description 11/20/2024 Orders Only [facility] [address] [place] [phone] Tim Pollock DO 11/12/2024 1:30 PM CDT Office Visit [facility] [address] [place] [phone] Judy Mukherjee NP Cardiac arrhythmia, unspecified cardiac arrhythmia type (Primary Dx) 11/01/2024 Orders Only [facility] [address] [place] [address] Mike Mclaughlin MD from Last 3 Months Allergies Active Allergy Reactions Criticality Noted Date [...] 06/26/2024 Assessment & Plan (06/26/2024 7:44 PM LABOR RELATIONS 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 [...] procedure is necessary. The patient has a [id number] score of 2. I have therefore recommended continued anticoagulation thromboprophylaxis. My office will make the appropriate arrangements. From: August, Marty LS, Alanna JS, Luis H, Rakan MORENA, Jeny JE, Graciela RUBÉN, Jaquelin PT, Mamadou DURON, ME, Wong KT, Riya RL, Sid WG, Nya PJ, Tiffany CM, Jenn CW. 2014 AHA/ACC/HRS guideline for the management of patients with atrial fibrillation: a report of the [place] College of [employer]iology/[employer] Heart Association Task Force on Practice Guidelines [...] ablation therapy ([phone]). 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 Gender Identity Not on file Sexual Orientation Not on file Last Filed Vital Signs Vital Sign Reading [...] 11/12/2024 1:25 PM CDT Plan of Treatment Not on file Medical Devices Implanted Type Area Merchandiser Seasonal Device Identifier Shelf Expiration Date Model / Serial / Lot [employer] Device Vascular Closure Femoral Artery Bioabsorbable Dual Method Vascade 6-7fr Collagen [id number] - [id number] - [id number] Implanted:Qty: 1 on 03/30/2024 by Jones Dalton MD at [facility] Collagen [employer] 11/08/2025 [id number] / [id number] / [id number] [employer] Vascade Mvp 6-12fr Venous Closure [id number] - [id number] - [id number] Implanted:Qty: 1 on 03/30/2024 by Jones Dalton MD at [facility] Collagen [employer] 11/23/2025 [id number] / [id number] / [id number] [employer] Vascade Mvp 6-12fr Venous Closure [id number] - [id number] - [id number] Implanted:Qty: 1 on 03/30/2024 by Jones Dalton MD at [facility] Collagen [employer] 11/23/2025 [id number]-[id number] 0U / [id number] / [id number] [employer] Vascade Mvp 6-12fr Venous Closure [id number] - [id number] - [id number] Implanted:Qty: 1 on 03/30/2024 by Jones Dalton MD at [facility] Collagen [employer] 11/23/2025 [id number]-[id number] [id number] / [id number] / [id number] Procedures Procedure Name Priority Date/Time Associated [...] AM CDT) Anatomical Region Laterality Modality Other Tim Pollock DO [facility] PRO CEDURES Final Result * ECG 12 lead (11/12/2024 1:26 PM CDT) Judy Mukherjee BRAND RECORDER ECG ORDERABLES Final Resu lt * Cardiology Document Scan (11/01/2024 3:18 PM CDT) Anatomical Region Laterality Modality Other Mike Mclaughlin MD [facility] PROCEDURE S Final Result * Cardiology Document Scan (11/01/2024 12:48 PM CDT) Anatomical Region Laterality Modality Other Mike Mclaughlin MD CV CARDIAC SERVICES PROCEDURE S Final Result from Last 3 Months Insurance MEDICARE [facility] MEDICARE [facility] Care Teams Asphalt Paver Relationship Specialty Start Date End Date Joseph Kruger MD PCP - General Internal Medicine 10/16/21 Jones Dalton MD [address] [address] Consulting Physician Electrophysiology 06/26/24
--- OUTSIDE RECORDS SUMMARY | 2024-12-06 14:55 | XMS_ITS | Encounter Summary ---
Author Organization [facility] Address [address] [place] [address] Care Team Providers Care Manager Engine Name Role Phone Unavailable Primary Care Provider Unavailabl e Reason for Visit * Diagnostic Imaging (Routine) - Closed Specialty Diagnoses / Procedures Referred By Contbear t Referred To Contact Procedures Breast Imaging Screening Outside Reference Nila Haddad MD PhD [address] [facility] [id number] [place] [address] Phone: tel: fax: Referral ID Status Reason Start Date Expiration Date Visits Re quested Visits Authorized [id number] Closed 11/30/2021 12/30/2022 1 1 Encounter Details Date Type Department Care Team (Late st Contact Info) Description 10/30/2015 Hospital Encounter [facility] [address] [place] [phone] Social History Tobacco Use Types Packs/Day Years [...] on file 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 Gender Identity Not on file Sexual Orientation Not on file documented as of this encounter Functional Status documented as of this encounter Plan of Treatment Not on file documented as of this encounter Procedures Procedure Name Priority Date/Time Associated Diagnosis Comments BREAST IMAGING MG SCREENING OUTSIDE REFERENCE Routine 10/30/2015 12:00 AM CDT documented in this encounter Results * Breast Imaging Screening Outside Reference (10/30/2015 12:00 AM CDT) Impressions [facility] - 11/30/2021 2:53 PM CDT These images are for Reference purposes only and have not been reviewed by [facility] Radiology. There will be no report generated by a [facility] Radiologist. Narrative [facility] - 11/30/2021 2:53 PM CDT EXAMINATION: Images For Reference Purposes Only us Nila Haddad MD PhD IMG MAMMO PROCEDURES Final Result [facility] documented in this encounter Visit Diagnoses Not on filedocumented in this encounter
[2024-12-06 15:28] LABS: Hematocrit 40.4 % (37.0-47.0); Hemoglobin 12.4 g/dL (12.0-15.0); Mean Corpuscular HGB Conc 30.7 g/dl (32-36); Mean Corpuscular Hemoglobin 29.8 pg (26-34); Mean Corpuscular Volume 97.1 fl (80-100); Mean Platelet Volume 10.4 fl (7.4-10.4); Platelet Count Result 232 k/mm3 (150-375); Red Blood Count 4.16 M/mm3 (4.2-5.4); White Blood Count 4.8 K/mm3 (4.5-10.0)
[2024-12-06 15:51] LABS: Alanine Aminotransferase 17 U/L (6-35); Albumin Level 4.1 g/dL (3.5-5.1); Alkaline Phosphatase 102 U/L (38-126); Anion Gap 6 mmol/L (4-12); Aspartate Amino Transferase 26 U/L (14-36); Bilirubin,Total 0.5 mg/dL (0.2-1.3); Blood Urea Nitrogen 16 mg/dL (7-17); CRP < 0.5 mg/dL (<1.0); Calcium 9.5 mg/dL (8.4-10.2); Carbon Dioxide 30 mmol/L (22-30); Chloride 106 mmol/L (98-107); Estimated Glomerular Filt Rate 50; Glucose 98 mg/dL (65-110); Potassium 4.1 mmol/L (3.4-5.0); Sodium 142 mmol/L (137-145)
[2024-12-06 16:07] LABS: Erythrocyte Sedimentation Rate 28 mm/hr (0-20)
== END 2024-12-06 14:51 | disposition home or self-care (01) ==
PROVIDERS: PCP Internal Medicine; Visit Provider Nurse Practitioner
DX: K21.9 Gastro-esophageal reflux disease without esophagitis (principal); R11.2 Nausea with vomiting, unspecified; K58.0 Irritable bowel syndrome with diarrhea
CPT/HCPCS: 36415; 80053; 85027; 85652; 86140

== ENCOUNTER 2025-04-20 17:31 | Emergency (ER) | payer MEDICARE, OTHER, SELFPAY ==
--- NOTE | ~2025-04-20 | CT_ITS ---
EXAMINATION: CT brain wo con, 04/20/2025 17:40 CDT HISTORY: slurred speech COMPARISON: No comparisons available. Technique: Axial images obtained of the brain without contrast. One or more of the following dose reduction techniques were used: automated exposure control, adjustment of the mA and/or kV according to patient size, use of iterative reconstruction technique. Findings: No acute infarct or parenchymal hemorrhage. No abnormal mass or mass effect. No midline shift. No extra-axial fluid collections. No hydrocephalus. Mastoid air cells unremarkable. Sinuses and orbits unremarkable. No acute fracture. No significant facial or scalp soft tissue swelling evident. No radiopaque foreign body is seen. Impression: 1.No acute intracranial abnormality. Reviewed, dictated and finalized at location A. Impression: 1.No acute intracranial abnormality.
--- NOTE | ~2025-04-20 | XR_ITS ---
EXAMINATION: XR chest 1V portable COMPARISON: No comparisons available. HISTORY: slurred speech FINDINGS: The lungs are clear, no effusion. No pneumothorax. Heart is normal size. Mediastinal and hilar contours are within normal limits. Bony thorax no acute abnormality. Miscellaneous: None Impression: No acute cardiopulmonary abnormality. Reviewed, dictated and finalized at location A. Impression: No acute cardiopulmonary abnormality.
--- NOTE | 2025-04-20 17:41 | ECG_ITS ---
Test Date: 2025-04-20 17:57:19 Measurements Intervals [place] Rate: 99 P: 91 [place]: 176 QRS: -1 QRSD: 85 T: 38 QT: 306 QTc: 394 Interpretive Statements SINUS RHYTHM LOW QRS VOLTAGE IN PRECORDIAL LEADS [QRS DEFLECTION < 1.0 mV IN CHEST LEADS] NONSPECIFIC T-WAVE ABNORMALITY BORDERLINE ECG No previous ECG available for comparison Electronically Signed On 04-21-2025 08:19:49 CDT by Joesph Oliveros M.D.
[2025-04-20 17:56] VITALS: PULSE 103; RESP 16; TEMP 36.6; O2SAT 100
[2025-04-20 18:00] LABS: Hematocrit 39.5 % (37.0-47.0); Hemoglobin 12.9 g/dL (12.0-15.0); Immature Granulocyte Percent A 0.3 % (0-0.5); Lymphocytes Absolute Auto 2.52 K/mm3 (0.9-3.2); Mean Corpuscular HGB Conc 32.7 g/dl (32-36); Mean Corpuscular Hemoglobin 30.1 pg (26-34); Mean Corpuscular Volume 92.3 fl (80-100); Nucleated Red Blood Cells Absolute Auto 0.000 K/mm3 (0.0-0.012); Nucleated Red Blood Cells Perc 0.0 % (0.0-0.2); Platelet Count Result 243 k/mm3 (150-375); Red Blood Count 4.28 M/mm3 (4.2-5.4); White Blood Count 7.8 K/mm3 (4.5-10.0)
[2025-04-20 18:07] VITALS: BP 158/71; PULSE 97; PULSE 99; RESP 15; RESP 20; O2SAT 100; O2SAT 99
[2025-04-20 18:10] LABS: INR 1.3; Prothrombin Time 15.8 Seconds (11.1-14.7)
[2025-04-20 18:11] LABS: Alanine Aminotransferase 22 U/L (6-35); Albumin Level 4.0 g/dL (3.5-5.1); Alkaline Phosphatase 98 U/L (38-126); Anion Gap 10 mmol/L (4-12); Aspartate Amino Transferase 45 U/L (14-36); Bilirubin,Total 0.4 mg/dL (0.2-1.3); Blood Urea Nitrogen 11 mg/dL (7-17); Calcium 9.3 mg/dL (8.4-10.2); Carbon Dioxide 23 mmol/L (22-30); Chloride 107 mmol/L (98-107); Estimated CRCL calculation 61 ml/min; Estimated Glomerular Filt Rate > 60; Glucose 121 mg/dL (65-110); Partial Thromboplastin Time 27.9 Seconds (22.3-36.8); Potassium 2.7 mmol/L (3.4-5.0); Sodium 140 mmol/L (137-145); Total Protein 7.9 g/dL (6.3-8.2)
[2025-04-20 18:17] VITALS: BP 170/83; PULSE 97; RESP 17
[2025-04-20 18:23] LABS: Troponin I < 0.012 ng/mL (0.000-0.034)
[2025-04-20 18:32] VITALS: BP 132/103; PULSE 98; RESP 17; O2SAT 100
[2025-04-20 18:57] LABS: Magnesium 1.9 mg/dL (1.6-2.3)
[2025-04-20] MEDS: POTASSIUM CHLORIDE INJ 40 MEQ in SODIUM CHLORIDE 0.9% IV 500 ML 130 MEQ IVPB (19:12)
[2025-04-20] MEDS: POTASSIUM CHLORIDE 20 MEQ PACKET (FOR LIQUID) 40 MEQ PO (19:41)
--- NOTE | 2025-04-20 19:52 | ED.NEUROSD ---
HPI - Neuro Symptoms/Deficit General Chief Complaint: Neuro Symptoms/Deficit Stated Complaint: tingling in tongue/face Time Seen by Provider: 04/20/25 18:55 History of Present Illness HPI Narrative: Three weeks ago, patient noticed tingling and numbness to the right side of her mouth, lips, tongue; went to see her doctor, who thought it was her teeth, sent her to a dentist, said it was not her teeth and recommended retrieval specialist; she had another episode and went to an ER and was treated for possible allergic reaction because she was having trouble swallowing. Today while she was talking to her she noticed her speech started garbling around 3:00 p.m.. He noticed that she was having facial droop. Related Data Home Medications ?Medication ?Instructions ?Recorded ?Confirmed ?Last Taken ?Type albuterol sulfate 90 mcg/actuation 1 inh inhalation Q4-6H PRN 12/28/23 02/25/25 Unknown History breath activated powder inhaler shortness of breath or wheezing amlodipine 5 mg tablet 5 mg PO DAILY 12/28/23 02/25/25 Unknown History apixaban 5 mg tablet (Eliquis) 5 mg PO BID 12/28/23 02/25/25 Unknown History escitalopram oxalate 20 mg tablet 20 mg PO DAILY 12/28/23 02/25/25 Unknown History lactobacillus combination no.9 4 4,000 mmu cells PO HS 12/28/23 02/25/25 Unknown History billion cell capsule (Adult 50 Plus Probiotic) loperamide 2 mg tablet (Imodium 2 mg PO Q6H PRN loose stool 12/28/23 02/25/25 Unknown History A-D) montelukast 10 mg tablet 10 mg PO DAILY 12/28/23 02/25/25 Unknown History propranolol 60 mg capsule,24 60 mg PO DAILY 12/28/23 02/25/25 Unknown History hr,extended release trazodone 100 mg tablet 100 mg PO QHS 12/28/23 02/25/25 Unknown History aspirin 325 mg tablet (Elenita 325 mg PO DAILY 12/06/24 02/25/25 Unknown History Aspirin) aspirin 81 mg capsule 81 mg PO DAILY 02/25/25 02/25/25 Unknown History cholecalciferol (vitamin D3) 25 25 mcg PO DAILY 02/25/25 02/25/25 Unknown History mcg (1,000 unit) capsule (Vitamin D3) clobetasol 0.05 % topical cream 1 applic topical BID 02/25/25 02/25/25 Unknown History topiramate 50 mg tablet 50 mg PO Q12H 02/25/25 02/25/25 Unknown History Allergies Allergy/AdvReac Type Severity Reaction Status Date / Time iodine Allergy Mild Unknown Verified 04/20/25 18:17 codeine Allergy Unknown Verified 04/20/25 18:17 flu shots Allergy Intermediate Hives Uncoded 02/25/25 13:44 Review of Systems Review of Systems: All systems reviewed & are unremarkable except as noted in HPI and below PMFSH Social History Social History Smoking status: Never smoker Alcohol intake: never Substance use: never Substance use type: does not use Living arrangements: with family Spiritual care concerns: No Exam Narrative: EXAMINATION OF ORGAN SYSTEMS/BODY AREAS: Constitutional: Vital signs per nursing GENERAL:[No acute distress, non-toxic appearing.] HEAD: Normal with no signs of head trauma. EYES: EOMI, conjunctiva normal ENT: Right-sided facial droop LUNGS: Nonlabored breathing. HEART: [Regular rate and rhythm] ABD: [Soft], [nontender to palpation] EXT: Normal range of motion SKIN: [No rashes or lesions.] NEURO: [Alert and oriented x 3. Dysarthric, right-sided facial droop with forehead sparing, right face and arm sensory deficits.] PSYCH: Normal affect Course Vital Signs Vital signs: Vital Signs Temperature 97.8 F 04/20/25 17:56 Pulse Rate 103 H 04/20/25 17:56 Respiratory Rate 16 04/20/25 17:56 Pulse Oximetry 100 04/20/25 17:56 Oxygen Delivery Room Air 04/20/25 17:56 Temperature 97.8 F 04/20/25 17:56 Pulse Rate 98 04/20/25 18:32 Respiratory Rate 17 04/20/25 18:32 Blood Pressure 132/103 H 04/20/25 18:32 Pulse Oximetry 100 04/20/25 18:32 Oxygen Delivery Room Air 04/20/25 17:56 MDM - Neuro Symptoms/Deficit MDM Narrative Medical decision making narrative: Patient presents with 3 weeks of right-sided lip/tongue/mouth numbness, but around 3:00 p.m. today she suddenly started having difficulty speaking with a facial droop. On exam NIH stroke scale is 4 with sensory deficit, facial droop, dysarthria. D/w Dr Corrina locke at [facility] (pt request for transfer facility), accepts transfer under Dr Mccormick. Bed available, transfer arranged, patient updated. Lab Data 04/20/25 17:43 04/20/25 17:43 Labs: Lab Results 04/20/25 04/20/25 04/20/25 Range/Units 17:40 17:43 18:11 WBC 7.8 (4.5-10.0) K/mm3 RBC 4.28 (4.2-5.4) M/mm3 Hgb 12.9 (12.0-15.0) g/dL Hct 39.5 (37.0-47.0) % MCV 92.3 (80-100) fl MCH 30.1 (26-34) pg MCHC 32.7 (32-36) g/dl RDW 13.2 (11.5-14.5) % Plt Count 243 (150-375) k/mm3 MPV 10.3 (7.4-10.4) fl Immature Gran % (Auto) 0.3 (0-0.5) % Neut % (Auto) 59.1 (45.5-73.1) % Lymph % (Auto) 32.3 (18.3-44.2) % Kendall % (Auto) 6.4 (2.6-8.5) % Eos % (Auto) 1.5 (0-4.4) % Baso % (Auto) 0.4 (0.2-1.2) % Lymph # (Auto) 2.52 (0.9-3.2) K/mm3 Kendall # (Auto) 0.5 (0.1-0.6) K/mm3 Eos # (Auto) 0.1 (0-0.3) K/mm3 Baso # (Auto) 0.0 (0.0-0.1) K/mm3 Abs Immat Gran (auto) 0.02 (0.00-0.031) K/mm3 Absolute Neuts (auto) 4.6 (1.3-6.7) K/mm3 Absolute Nucleated RBC 0.000 (0.0-0.012) K/mm3 Nucleated RBC % 0.0 (0.0-0.2) % PT 15.8 H (11.1-14.7) Seconds INR 1.3 APTT 27.9 (22.3-36.8) Seconds Sodium 140 (137-145) mmol/L Potassium 2.7 L* (3.4-5.0) mmol/L Chloride 107 (98-107) mmol/L Carbon Dioxide 23 (22-30) mmol/L Anion Gap 10 (4-12) mmol/L BUN 11 D (7-17) mg/dL Creatinine 0.87 (0.7-1.0) mg/dL Estim Creat Clear Calc 61 ml/min Estimated GFR > 60 (59 - ) Glucose 121 H (65-110) mg/dL POC Capillary Glucose 119 H (65-105) mg/dl Calcium 9.3 (8.4-10.2) mg/dL Magnesium 1.9 (1.6-2.3) mg/dL Total Bilirubin 0.4 (0.2-1.3) mg/dL AST 45 H (14-36) U/L ALT 22 (6-35) U/L Alkaline Phosphatase 98 (38-126) U/L Troponin I < 0.012 (0.000-0.034) ng/mL Total Protein 7.9 (6.3-8.2) g/dL Albumin 4.0 (3.5-5.1) g/dL Critical Care Time Critical Care Time Critical Care Time: Yes Total Critical Care Time: 31 Discharge Plan Discharge Clinical Impression: Acute CVA (cerebrovascular accident), Facial droop, Dysarthria Patient Disposition: Acute Care Hospital Condition: Stable Patient Language: Icelandic Prescriptions: No Action Eliquis 5 mg tablet 5 mg PO BID propranolol 60 mg capsule,extended release 24 hr 60 mg PO DAILY amlodipine 5 mg tablet 5 mg PO DAILY escitalopram oxalate 20 mg tablet 20 mg PO DAILY trazodone 100 mg tablet 100 mg PO QHS montelukast 10 mg tablet 10 mg PO DAILY albuterol sulfate 90 mcg/actuation aerosol powdr breath activated 1 inh inhalation Q4-6H PRN (Reason: shortness of breath or wheezing) Adult 50 Plus Probiotic 4 billion cell capsule 4,000 mmu cells PO HS Rx Instructions: administer with a meal loperamide [Imodium A-D] 2 mg tablet 2 mg PO Q6H PRN (Reason: loose stool) aspirin [Elenita Aspirin] 325 mg tablet 325 mg PO DAILY dicyclomine 20 mg tablet 20 mg PO .every 6 hours Qty: 120 3RF sodium,potassium,mag sulfates [Suprep Bowel Prep Kit] 17.5-3.13-1.6 gram recon soln See Rx Instructions .ROUTE .COMPLEX Qty: 354 0RF Rx Instructions: follow instructions from your provider topiramate 50 mg tablet 50 mg PO Q12H cholecalciferol (vitamin D3) [Vitamin D3] 25 mcg (1,000 unit) capsule 25 mcg PO DAILY aspirin 81 mg capsule 81 mg PO DAILY clobetasol 0.05 % cream 1 applic TOPICAL BID ondansetron 4 mg tablet,disintegrating 4 - 8 mg PO Q8H PRN (Reason: nausea and vomiting) Qty: 30 0RF omeprazole 20 mg capsule,delayed release(DR/EC) See Rx Instructions .ROUTE .COMPLEX Qty: 90 0RF Dose Instruction: TAKE 1 CAPSULE BY MOUTH DAILY Rx Instructions: TAKE 1 CAPSULE BY MOUTH DAILY nortriptyline 25 mg capsule See Rx Instructions .ROUTE .COMPLEX Qty: 30 11RF Dose Instruction: TAKE 1 CAPSULE BY MOUTH EVERY DAY AT BEDTIME Rx Instructions: TAKE 1 CAPSULE BY MOUTH EVERY DAY AT BEDTIME Follow-up/Referrals: Eiv,MD Mallorie [Primary Care Provider, Unknown]
== END 2025-04-20 22:03 | disposition short-term general hospital (02) ==
PROVIDERS: Emergency Medicine; Physician Assistant; Emergency Provider Emergency Medicine; PCP Internal Medicine
DX: I63.9 Cerebral infarction, unspecified (principal); R29.810 Facial weakness; R47.1 Dysarthria and anarthria; R29.704 NIHSS score 4; E87.6 Hypokalemia; I10 Essential (primary) hypertension; Z79.01 Long term (current) use of anticoagulants; R94.31 Abnormal electrocardiogram [ECG] [EKG]
CPT/HCPCS: 36415; 70450; 71045; 80053; 82948; 83735; 84484; 85025; 85610; 85730; 93005; 96365; 96366; 99285; A9270; J3480; J7040